=== PATIENT | female | born 1970 | race Caucasian/White ===

== ENCOUNTER 2017-01-14 12:16 | Emergency (ER) | payer OTHER ==
[~2017-01-14] VITALS: Ht 160 cm; Wt 83.0 kg
[2017-01-14 12:17] VITALS: BP 140/76; PULSE 74; RESP 16; TEMP 98.8; O2SAT 99
[2017-01-14] MEDS ORDERED: LEVO25TA4 PO (12:56)
[2017-01-14] MEDS ORDERED: LOSA50TA PO (12:56)
[2017-01-14] MEDS ORDERED: BACT800T5 PO (13:03)
[2017-01-14] MEDS ORDERED: IBUP800T23 PO (13:04)
--- NOTE | 2017-01-14 13:04 | PD ---
HPI Chief Complaint: Skin Problem Time Seen by Provider: 13:01 Travel History International Travel<30 days: No Contact w/Intl Traveler<30days: No Traveled to known affect area: No History of Present Illness HPI 36-year-old female presents to emergency Department with complaint of swelling and redness to the base of her left index finger nailbed times one week. Denies fever, vomiting. Up-to-date on tetanus vaccination. Denies paresthesias , loss of sensation, decreased range of motion to the affected finger. Has been taking ibuprofen for symptom management. She has also tried cutting the area open herself to drain it. Symptoms are mild in severity. Allergies to penicillin. Pain is aggravated with palpation. Throbbing sensation. Has no other medical complaints. No other modifying factors or associated signs and symptoms. PFSH Past Medical History ?: Not Social History Tobacco Use: No Allergies-Medications (Allergen,Severity, Reaction): Coded Allergies: Penicillins (Verified Allergy, Unknown, 01/14/17) Reported Meds & Prescriptions Reported Meds & Active Scripts Active Ibuprofen 800 Mg Tab 800 Mg PO Q6HR PRN Bactrim DS (Sulfamethoxazole-Trimethoprim) 800-160 Mg Tab 1 Tab PO BID 10 Days Reported Losartan (Losartan Potassium) 50 Mg Tab 50 Mg PO DAILY Levothyroxine (Levothyroxine Sodium) 25 Mcg Tab 25 Mcg PO DAILY Review of Systems Except as stated in HPI: all other systems reviewed are Neg Physical Exam Narrative GENERAL: Well-nourished, well-developed female patient, in no acute distress; afebrile, nontoxic-appearing SKIN: Warm and dry. Paronychia noted to base of left index finger nailbed; area w/ with erythema and fluctuance; finger with full range of motion and sensory intact; 3 second cap refill. HEAD: Atraumatic. Normocephalic. EYES: Pupils equal and round. No scleral icterus. No injection or drainage. ENT: Mucosa pink and moist. Airway patent. NECK: Trachea midline. CARDIOVASCULAR: Regular rate. RESPIRATORY: No accessory muscle use. GASTROINTESTINAL: Rounded. MUSCULOSKELETAL: No obvious deformities. No clubbing. No cyanosis. No edema. NEUROLOGICAL: Awake and alert. Oriented 3. No obvious cranial nerve deficits. Motor grossly within normal limits. Normal speech. PSYCHIATRIC: Appropriate mood and affect; insight and judgment normal. Data Data Last Documented VS Vital Signs Date Time Temp Pulse Resp B/P (MAP) Pulse Ox O2 Delivery O2 Flow Rate FiO2 01/14/17 12:17 98.8 74 16 140/76 (97) 99 Room Air Orders Orders Wound Culture And Gram Stain (01/14/17 13:04) Ibuprofen (Motrin) (01/14/17 13:15) MDM Medical Decision Making Medical Screen Exam Complete: Yes Emergency Medical Condition: Yes Medical Record Reviewed: Yes Differential Diagnosis Paronychia, felon, cellulitis Narrative Course 46-year-old female physical exam consistent with a paronychia of the left index finger. Patient is afebrile and nontoxic-appearing. Denies fever, vomiting. Up-to-date on tetanus vaccination. See my Procedure note for incision and drainage. Wound culture pending. Ibuprofen administered in the ER. Penicillin allergic. Bactrim and ibuprofen prescribed for home. Instructed patient to follow up with primary care provider. Patient verbalizes understanding and agreement with treatment plan. Patient is medically cleared and stable for discharge. Discussed reasons to return to the emergency department. Patient agrees with treatment plan. The patients vital signs are stable and the patient is stable for outpatient follow- up and treatment. Patient discharged home, stable and in no acute distress. Procedures Procedure Narrative INCISION AND DRAINAGE OF PARONYCHIA: The area was prepped and was sterilely draped. Ethyl chloride was used to anesthetize the area. The area was properly anesthetized. A number 11 scalpel was used to make a pinpoint incision across the area of the abscess. Cultures were obtained. The paronychia was drained. Sterile dressing applied. Diagnosis Primary Impression: Paronychia of left index finger Referrals: [facility] Primary Care Physician Patient Instructions: General Instructions, Paronychia (ED) Additional Instructions: Complete full course of antibiotics Warm compresses to the affected area Keep area clean and dry Ibuprofen or Tylenol as directed and as needed for pain and inflammation Follow-up with primary care provider Return to emergency department immediately with worsening of symptoms Med/Other Pt SpecificInfo: Prescription(s) given Scripts Ibuprofen (Ibuprofen) 800 Mg Tab 800 MG PO Q6HR Y for PAIN, #30 TAB 0 Refills Prov: Elizabeth Iqbal 01/14/17 Sulfamethoxazole-Trimethoprim (Bactrim DS) 800-160 Mg Tab 1 TAB PO BID for Infection for 10 Days, #20 TAB 0 Refills Prov: Elizabeth Iqbal 01/14/17 Disposition: 01 DISCHARGE HOME Condition: Stable Elizabeth Iqbal Jan 14, 2017 13:04
[2017-01-14] MEDS ORDERED: IBUPROFEN 800 MG TAB PO ONE (13:15)
== END 2017-01-14 13:24 | disposition home or self-care (01) ==
LOC: NEPK 12:16
DX: L03.012 Cellulitis of left finger (principal); Z88.0 Allergy status to penicillin
CPT/HCPCS: 10060; 87070

== ENCOUNTER 2017-01-19 11:51 | Emergency (ER) | payer OTHER ==
[~2017-01-19] VITALS: Ht 160 cm; Wt 85.0 kg
[~2017-01-19 11:51] MED LIST: BACT800T5 PO; IBUP800T23 PO; LEVO25TA4 PO; LOSA50TA PO
[2017-01-19 11:52] VITALS: BP 139/78; PULSE 72; RESP 12; TEMP 99.4; O2SAT 99
[2017-01-19] MEDS ORDERED: DOXY100C PO (14:26)
--- NOTE | 2017-01-19 14:31 | PD ---
HPI Chief Complaint: Skin Problem Time Seen by Provider: 13:52 Travel History International Travel<30 days: No Contact w/Intl Traveler<30days: No Traveled to known affect area: No History of Present Illness HPI The patient was seen and examined in the presence of the nurse. This patient complains of infection of the left second finger. She's had it for 2 weeks. She was seen here few days ago and attempted I&D didn't yield any pus. She is taking Bactrim and not getting any better. Denies fever. Symptoms severity is moderate PFSH Past Medical History ?: Not Social History Alcohol Use: Yes (OCC) Tobacco Use: No Substance Use: No Allergies-Medications (Allergen,Severity, Reaction): Coded Allergies: Penicillins (Verified Allergy, Unknown, 01/14/17) Reported Meds & Prescriptions Reported Meds & Active Scripts Active Doxycycline Hyclate 100 Mg Cap 100 Mg PO BID Ibuprofen 800 Mg Tab 800 Mg PO Q6HR PRN Bactrim DS (Sulfamethoxazole-Trimethoprim) 800-160 Mg Tab 1 Tab PO BID 10 Days Reported Losartan (Losartan Potassium) 50 Mg Tab 50 Mg PO DAILY Levothyroxine (Levothyroxine Sodium) 25 Mcg Tab 25 Mcg PO DAILY Review of Systems General / Constitutional: No: Fever HENT: No: Headaches Cardiovascular: No: Chest Pain or Discomfort Respiratory: No: Cough Physical Exam Narrative Psych: Normal mood and affect. Normal insight and judgment. SKIN: Focused skin assessment reveals no rash or ulcers. Skin is warm and dry. Palpation shows no induration or nodules. Left second finger: Patient has a paronychia on the lateral aspect. There is a large heaped up nodule with a hint of fluctuance. No evidence of spreading infection proximally Data Data Last Documented VS Vital Signs Date Time Temp Pulse Resp B/P (MAP) Pulse Ox O2 Delivery O2 Flow Rate FiO2 01/19/17 11:52 99.4 72 12 139/78 (98) 99 Orders Orders Wound Culture And Gram Stain (01/19/17 14:21) [facility] Medical Decision Making Medical Screen Exam Complete: Yes Emergency Medical Condition: Yes Medical Record Reviewed: Yes Differential Diagnosis Paronychia, abscess, cellulitis Narrative Course I have reviewed the patient's electronic medical record. Culture from a few days ago did not grow any bacteria Patient requests incision and drainage. Procedure note: I anesthetized the finger with ethyl chloride spray. I used an 11 blade scalpel to open up an area in the paronychia. I did drain some thick yellow pus. Culture was obtained. Patient tolerated the procedure well. Dressing applied Recommending hand surgeon follow-up. I'm starting on doxycycline Recommend warm compresses Wound care discussed Diagnosis Primary Impression: Paronychia of finger of left hand Additional Impression: Encounter for incision and drainage procedure Additional Instructions: The patient was advised to follow up with hand physician Med/Other Pt SpecificInfo: Prescription(s) given Scripts Doxycycline Hyclate (Doxycycline Hyclate) 100 Mg Cap 100 MG PO BID for Infection, #14 CAP 0 Refills Prov: Kanu Whitten MD 01/19/17 Disposition: 01 DISCHARGE HOME Condition: Stable Kanu Whitten MD Jan 19, 2017 14:31
== END 2017-01-19 14:53 | disposition home or self-care (01) ==
LOC: NEPD 11:51
DX: L03.012 Cellulitis of left finger (principal)
CPT/HCPCS: 10060; 87070; 87205